=== PATIENT | female | born 1990 | race Caucasian/White ===

== ENCOUNTER 2016-10-18 22:53 | Emergency (ER) | payer SELFPAY ==
[~2016-10-18 22:53] MED LIST: MOTRIN-DPS800 MG PO; PRENATAL VIT1 TAB PO
--- NOTE | 2016-10-19 19:09 | ER ---
ADMIT: 10/18/2016 RM/LOC: ER [facility] MR#: [id number] [facility] [place], [place] [id number] IVY WAREKERI Vargas [address] [place] [address] Emergency Room Report SEX: F AGE: 26 : 1990 DATE: 10/18/2016 HISTORY OF PRESENT ILLNESS: The patient is a 26-year-old female, 4, para 2, per LMP, which is dated 07/26/2016. The patient is 12 weeks and came to the ER with chief complaint of lower abdominal cramping, sometimes on the left and sometimes on the right for 1 day and also vaginal bleeding and passing multiple clots. Per patient, the bleeding started as bloody show and later on looks like beginning of the period. At the moment, the patient has no abdominal pain. The patient states she has not been followed up for the care. The patient believes one time she could have passed some tissue-like material. PHYSICAL EXAMINATION: VITAL SIGNS: The patient's heart rate was normal, the patient was afebrile, blood pressure was stable. GENERAL: The patient was in no acute distress or pain. HEAD and NECK: Negative and noncontributory. CHEST: Clear bilaterally. HEART: Normal heart sounds. ABDOMEN: Soft and nontender. VAGINAL/PELVIC: The patient had about 3 to 4 mL of the dark old blood and clot in the vaginal vault without any active bleeding. In the bimanual exam, the patient had no cervical motion tenderness, no adnexal tenderness and the external os of the cervix is closed. The rest of the physical exam is noncontributory. Per chart, the patient has blood group of A positive. Urine has 8 white blood cells and 4 red blood cells, beta-hCG level was 324. Vaginal ultrasound showed an empty gestational sac without any embryo or yolk sac. Hemoglobin was also 13.9. Considering the beta-hCG levels and the result of the ultrasound, blighted ovum versus very early are at the top of differentials. The patient could not give us any documents or records or any more information about the previous positive test about 3 months ago. The patient has no active bleeding at the moment and can be discharged to home and followed up by the primary doctor. The patient was advised to call for appointment early in the morning. The patient acknowledged she understood the plan and agreed with it and was discharged to home. Ashwin Bird MD/ darion JOB #: [id number] CC: Ashwin Bird MD, Attending Physician Luz Samuels MD, Family Physician
== END 2016-10-19 02:30 | disposition home or self-care (01) ==
LOC: ER 22:53
DX: O02.0 Blighted ovum and nonhydatidiform mole (principal)